=== PATIENT | male | born 1985 | race Caucasian/White ===

== ENCOUNTER 2017-12-06 15:29 | Emergency (ER) | payer OTHER ==
[2017-12-06] MEDS: KETOROLAC 30 MG/ML VIAL (J1885) IV (18:52)
[2017-12-06] MEDS: NS 1,000 ML IV (18:52)
[2017-12-06] MEDS: ONDANSETRON 4MG/2ML VIAL (J2405) IV (18:52)
[2017-12-06 19:07] LABS: BASO % 0.2 % (0.0-1.0); EOS # 0.1 10^3/uL (0.0-0.50); HEMATOCRIT 47.2 % (42.0-52.0); HEMOGLOBIN 15.8 g/dl (14.0-18.0); IMMATURE GRANULOCYTE % 0.3 % (0-3.0); LYMPH # 1.1 10^3/uL (1.5-4.5); LYMPH % 9.1 % (24.0-44.0); MEAN CORPUSCULAR HEMOGLOBIN 28.9 pg (27.0-33.0); MEAN CORPUSCULAR HGB CONC 33.5 g/dl (32.0-36.5); MEAN CORPUSCULAR VOLUME 86.4 fl (80.0-96.0); MONO # 0.8 10^3/uL (0.0-0.8); MONO % 6.9 % (0.0-5.0); NEUTROPHILS # 9.8 10^3/uL (1.8-7.7); NEUTROPHILS % 82.5 % (36.0-66.0); PLATELET COUNT, AUTOMATED 224 10^3/uL (150-450); RED BLOOD COUNT 5.46 10^6/uL (4.30-6.10); RED CELL DISTRIBUTION WIDTH 12.2 % (11.5-14.5); WHITE BLOOD COUNT 11.8 10^3/uL (4.0-10.0)
[2017-12-06 19:29] LABS: ALBUMIN/GLOBULIN RATIO 1.11 (1.00-1.93); ALKALINE PHOSPHATASE 98 U/L (45-117); ALT/SGPT 34 U/L (12-78); ANION GAP 5 MEQ/L (8-16); AST/SGOT 17 U/L (7-37); BILIRUBIN,DIRECT 0.3 MG/DL (0.0-0.2); BILIRUBIN,TOTAL 2.5 MG/DL (0.2-1.0); BLOOD UREA NITROGEN 17 MG/DL (7-18); CALCIUM LEVEL 8.5 MG/DL (8.5-10.1); CARBON DIOXIDE LEVEL 30 MEQ/L (21-32); CHLORIDE LEVEL 104 MEQ/L (98-107); CREATININE FOR GFR 0.86 MG/DL (0.70-1.30); GLOMERULAR FILTRATION RATE > 60.0 (>60); GLUCOSE, FASTING 107 MG/DL (70-100); LIPASE 85 U/L (73-393); POTASSIUM SERUM 3.6 MEQ/L (3.5-5.1); SODIUM LEVEL 139 MEQ/L (136-145); TOTAL PROTEIN 7.6 GM/DL (6.4-8.2)
[2017-12-06 19:34] LABS: BILIRUBIN, URINE MANUAL NEGATIVE (NEGATIVE); GLUCOSE, URINE (UA) MANUAL NEGATIVE (NEGATIVE); KETONE, URINE MANUAL NEGATIVE (NEGATIVE); NITRITE, URINE MANUAL RFX NEGATIVE (NEGATIVE); PROTEIN, URINE MANUAL REFLEX NEGATIVE (NEGATIVE); UROBILINOGEN, URINE MANUAL NORMAL (NORMAL)
[2017-12-06 19:35] LABS: BLOOD URINE MANUAL RFX NEGATIVE (NEGATIVE)
[2017-12-06 19:44] LABS: INFLUENZA A AMPLIFICATION NEGATIVE (NEGATIVE); INFLUENZA B AMPLIFICATION NEGATIVE (NEGATIVE)
[2017-12-06] MEDS: ONDANSETRON 4 MG ORAL DISINTEGRATING TAB (S0181) PO (21:45)
== END 2017-12-06 21:52 | disposition home or self-care (01) ==
LOC: M ED 15:29
DX: A08.11 Acute gastroenteropathy due to Norwalk agent (principal); Z98.890 Other specified postprocedural states
CPT/HCPCS: J2405

== ENCOUNTER 2019-07-25 13:57 | Emergency (ER) | payer OTHER ==
[~2019-07-25] VITALS: Ht 170.2 cm; Wt 103.6 kg
[~2019-07-25 13:57] MED LIST: TYLE160S15 PO; ZOFR4TAB14 PO
[2019-07-25] MEDS ORDERED: ACETAMINOPHEN 500 MG TAB PO ONE (14:45)
[2019-07-25] MEDS ORDERED: IBUPROFEN 800 MG TAB PO ONE (14:45)
[2019-07-25] MEDS ORDERED: PENICILLIN V POTASSIUM 500 MG TAB PO ONE (15:00)
[2019-07-25 15:05] LABS: INFLUENZA A AMPLIFICATION POSITIVE (NEGATIVE); INFLUENZA B AMPLIFICATION NEGATIVE (NEGATIVE)
[2019-07-25] MEDS ORDERED: IBUP-1022 PO ×2 (15:12→15:24)
[2019-07-25] MEDS ORDERED: PENI500T PO (15:12)
[2019-07-25] MEDS ORDERED: OSEL75CA PO (15:24)
[2019-07-25 15:34] VITALS: BP 160/75
== END 2019-07-25 15:44 | disposition home or self-care (01) ==
LOC: M ED 13:57
DX: J02.9 Acute pharyngitis, unspecified (principal)

== ENCOUNTER 2020-04-01 06:55 | Emergency (ER) | payer OTHER ==
[~2020-04-01] VITALS: Ht 170.2 cm; Wt 97.3 kg
[~2020-04-01 06:55] MED LIST changes: +IBUP-1022 PO; +OSEL75CA PO; +PENI500T PO
[2020-04-01 06:57] VITALS: BP 135/83
== END 2020-04-01 08:05 | disposition home or self-care (01) ==
LOC: M ED 06:55
DX: S46.101A Unspecified injury of muscle, fascia and tendon of long head of biceps, right arm, initial encounter (principal); X58.XXXA Exposure to other specified factors, initial encounter; Y92.099 Unspecified place in other non-institutional residence as the place of occurrence of the external cause; Y93.B3 Activity, free weights; Y99.9 Unspecified external cause status

== ENCOUNTER 2020-10-19 21:17 | Emergency (ER) | payer OTHER ==
[~2020-10-19] VITALS: Ht 170.2 cm; Wt 100.1 kg
--- OUTSIDE RECORDS SUMMARY | 2020-10-19 21:23 | CCD | Continuity of Care Document ---
Author Author Tigre DENNIS MD Organization Unknown Address [address], [address] [place] [address] Phone [phone] Care Team Providers Care Paper Machine Backtender Name Role Phone No PCP AUTM Unavailable Problems Description No Information Available Social History Type Date Description Comments Sex Unknown ETOH Use Occasionally consumes alcohol Tobacco Use Start: Unknown Patient has never smoked (pipe, cigarette, cigar) Recreational Drug Use Denies Drug Use Smoking Status Reviewed: 09/12/20 Patient has never sm oked (pipe, cigarette, cigar) Allergies, Adverse Reactions, Alerts Description No Known Drug Allergies Medications Description No Active Medications Immunizations Description No Information Available Vital Signs Date Vital Result Comment 08/15/2020 11:25am Height 67 inches 5'7" Weight 213.00 lb BMI (Body Mass Index) 33.4 kg/m2 BP Systolic 125 mmHg BP Diastolic 82 mmHg Heart Rate 87 /min 09/07/2019 9:32am Height 67 inches 5'7" Weight 220.00 lb BMI (Body Mass Index) 34.5 kg/m2 BP Systolic 119 mmHg BP Diastolic 84 mmHg Heart Rate 79 /min Results Description No Information Available Procedures Description No Information Available Medical Devices Description No Information Available Encounters Type Date Location Provider Dx Diagnosis Office Visit 09/12/2020 10:15a [facility] Manish Dennis MD M51.3 6 Other intervertebral disc degeneration, lumbar region M54.5 Low back pain 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, unsp Office Visit 08/15/2020 11:30a [facility] Manish Dennis MD 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, unsp M54.5 Low back pain M51.36 Other intervertebral disc de generation, lumbar region Assessments Date Code Description Provider 09/12/2020 M51.36 Other intervertebral disc degene ration, lumbar region Manish Dennis MD 09/12/2020 M54.5 Low back pain Manish Dennis MD 09/12/2020 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, unspecified Manish Dennis MD 08/15/2020 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
--- OUTSIDE RECORDS SUMMARY | 2020-10-19 21:24 | CCD ---
Author Author [facility] Organization [facility] Address Unknown Phone Unavailable Care Team Providers Care Sweep Press Operator Name Role Phone Emilia FLYNN MD Unavailable Unavailable Emilia FLYNN MD Unavailable Unavailable Emilia FLYNN MD Unavailable Unavailable Emilia FLYNN MD Unavailable Unavailable Emilia FLYNN MD Unavailable Unavailable Emilia FLYNN MD Unavailable Unavailable Emilia FLYNN MD Unavailable Unavailable Emilia FLYNN MD Unavailable Unavailable Emilia FLYNN MD Unavailable Unavailable Emilia FLYNN MD Unavailable Unavailable Emilia FLYNN MD Unavailable Unavailable Emilia FLYNN MD Unavailable Unavailable Emilia FLYNN MD Unavailable Unavailable Emilia FLYNN MD Unavailable Unavailable Emilia FLYNN MD Unavailable Unavailable Emilia FLYNN MD Unavailable Unavailable Emilia FLYNN MD Unavailable Unavailable Emilia FLYNN MD Unavailable Unavailable Emilia FLYNN MD Unavailable Unavailable Emilia FLYNN MD Unavailable Unavailable Emilia FLYNN MD Unavailable Unavailable Emilia FLYNN MD Unavailable Unavailable Emilia FLYNN MD Unavailable Unavailable Emilia FLYNN MD Unavailable Unavailable Emilia FLYNN MD Unavailable Unavailable Emilia FLYNN MD Unavailable Unavailable Emilia FLYNN MD Unavailable Unavailable Emilia FLYNN MD Unavailable Unavailable Emilia FLYNN MD Unavailable Unavailable Emilia FLYNN MD Unavailable Unavailable Emilia FLYNN MD Unavailable Unavailable Emilia FLYNN MD Unavailable Unavailable Emilia FLYNN MD Unavailable Unavailable Emilia FLYNN MD Unavailable Unavailable Emilia FLYNN MD Unavailable Unavailable Emilia FLYNN MD Unavailable Unavailable Emilia FLYNN MD Unavailable Unavailable Emilia FLYNN MD Unavailable Unavailable Emilia FLYNN MD Unavailable Unavailable Emilia FLYNN MD Unavailable Unavailable MOQUIN, R ROSS Unavailable Unavailable MOQUIN, R ROSS Unavailable Unavailable MOQUIN, R TYE LARIOS Unavailable Unavailable MOQUIN, R TYE LARIOS Unavailable Unavailable MOQUIN, R TYE LARIOS Unavailable Unavailable MOQUIN, R ROSS Unavailable Unavailable MOQUIN, R ROSS Unavailable Unavailable MOQUIN, R ROSS Unavailable Unavailable MOQUIN, R TYE LARIOS Unavailable Unavailable MOQUIN, R TYE LARIOS Unavailable Unavailable MOQUIN, R TYE LARIOS Unavailable Unavailable MOQUIN, R TYE LARIOS Unavailable Unavailable MOQUIN, R TYE LARIOS Unavailable Unavailable MOQUIN, R ROSS MD Unavailable Unavailable MOQUIN, R ROSS MD Unavailable Unavailable MOQUIN, R ROSS MD Unavailable Unavailable MOQUIN, R ROSS Unavailable Unavailable MOQUIN, R TYE LARIOS Unavailable Unavailable MOQUIN, R TYE LARIOS Unavailable Unavailable MOQUIN, R TYE LARIOS Unavailable Unavailable MOQUIN, R TYE LARIOS Unavailable Unavailable MOQUIN, R TYE LARIOS Unavailable Unavailable MOQUIN, R TYE LARIOS Unavailable Unavailable MOQUIN, R TYE LARIOS Unavailable Unavailable MOQUIN, R TYE LARIOS Unavailable Unavailable MOQUIN, R TYE LARIOS Unavailable Unavailable MOQUIN, R TYE LARIOS Unavailable Unavailable MOQUIN, R TYE LARIOS Unavailable Unavailable MOQUIN, R TYE LARIOS Unavailable Unavailable MOQUIN, R TYE LARIOS Unavailable Unavailable MOQUIN, R TYE LARIOS Unavailable Unavailable MOQUIN, R TYE LARIOS Unavailable Unavailable MOQUIN, R TYE LARIOS Unavailable Unavailable MOQUIN, R TYE LARIOS Unavailable Unavailable MOQUIN, R TYE LARIOS Unavailable Unavailable MOQUIN, R TYE LARIOS Unavailable Unavailable MOQUIN, R TYE LARIOS Unavailable Unavailable MOQUIN, R TYE LARIOS Unavailable Unavailable MOQUIN, R TYE LARIOS Unavailable Unavailable MOQUIN, R TYE LARIOS Unavailable Unavailable MOQUIN, R TYE LARIOS Unavailable Unavailable MOQUIN, R TYE LARIOS Unavailable Unavailable MOQUIN, R TYE LARIOS Unavailable Unavailable MOQUIN, R TYE LARIOS Unavailable Unavailable MOQUIN, R TYE LARIOS Unavailable Unavailable MOQUIN, R TYE LARIOS Unavailable Unavailable [facility] Unavailable Unavailable MOQUIN, R TYE LARIOS Unavailable Unavailable MOQUIN, R TYE LARIOS Unavailable Unavailable MOQUIN, R TYE LARIOS Unavailable Unavailable MOQUIN, R TYE LARIOS Unavailable Unavailable MOQUIN, R TYE LARIOS Unavailable Unavailable MOQUIN, R TYE LARIOS Unavailable Unavailable MOQUIN, R TYE LARIOS Unavailable Unavailable MOQUIN, R TYE LARIOS Unavailable Unavailable MOQUIN, R TYE LARIOS Unavailable Unavailable MOQUIN, R TYE LARIOS Unavailable Unavailable MOQUIN, R TYE LARIOS Unavailable Unavailable MOQUIN, R TYE LARIOS Unavailable Unavailable MOQUIN, R TYE LARIOS Unavailable Unavailable MOQUIN, R TYE LARIOS Unavailable Unavailable MOQUIN, R TYE LARIOS Unavailable Unavailable MOQUIN, R ROSS MD Unavailable Unavailable MOQUIN, R ROSS MD Unavailable Unavailable MOQUIN, R ROSS MD Unavailable Unavailable MOQUIN, R ROSS MD Unavailable Unavailable MOQUIN, R ROSS MD Unavailable Unavailable MOQUIN, R ROSS MD Unavailable Unavailable MOQUIN, R ROSS MD Unavailable Unavailable MOQUIN, R ROSS MD Unavailable Unavailable MOQUIN, R ROSS MD Unavailable Unavailable MOQUIN, R ROSS MD Unavailable Unavailable MOQUIN, R ROSS MD Unavailable Unavailable MOQUIN, R ROSS MD Unavailable Unavailable MOQUIN, R ROSS MD Unavailable Unavailable MOQUIN, R ROSS MD Unavailable Unavailable MOQUIN, R ROSS MD Unavailable Unavailable MOQUIN, R ROSS MD Unavailable Unavailable MOQUIN, R ROSS MD Unavailable Unavailable MOQUIN, R ROSS MD Unavailable Unavailable MOQUIN, R ROSS MD Unavailable Unavailable MOQUIN, R ROSS MD Unavailable Unavailable MOQUIN, R ROSS MD Unavailable Unavailable MOQUIN, R ROSS MD Unavailable Unavailable MOQUIN, R ROSS MD Unavailable Unavailable MOQUIN, R ROSS MD Unavailable Unavailable MOQUIN, R ROSS MD Unavailable Unavailable MOQUIN, R ROSS MD Unavailable Unavailable MOQUIN, R ROSS Unavailable Unavailable MOQUIN, R ROSS Unavailable Unavailable MOQUIN, R ROSS MD Unavailable Unavailable MOQUIN, R ROSS MD Unavailable Unavailable MOQUIN, R ROSS MD Unavailable Unavailable MOQUIN, R ROSS MD Unavailable Unavailable MOQUIN, R ROSS Unavailable Unavailable MOQUIN, R ROSS Unavailable Unavailable MOQUIN, R ROSS Unavailable Unavailable MOQUIN, R ROSS Unavailable Unavailable MOQUIN, R ROSS Unavailable Unavailable MOQUIN, R ROSS Unavailable Unavailable MOQUIN, R ROSS MD Unavailable Unavailable MOQUIN, R ROSS Unavailable Unavailable MOQUIN, R ROSS Unavailable Unavailable MOQUIN, R ROSS Unavailable Unavailable MOQUIN, R ROSS Unavailable Unavailable MOQUIN, R ROSS Unavailable Unavailable MOQUIN, R ROSS MD Unavailable Unavailable MOQUIN, R ROSS MD Unavailable Unavailable MOQUIN, R ROSS MD Unavailable Unavailable MOQUIN, R ROSS MD Unavailable Unavailable MOQUIN, R ROSS MD Unavailable Unavailable MOQUIN, R ROSS MD Unavailable Unavailable MOQUIN, R ROSS Unavailable Unavailable MOQUIN, R ROSS Unavailable Unavailable MOQUIN, R ROSS MD Unavailable Unavailable MOQUIN, R ROSS MD Unavailable Unavailable MOQUIN, R ROSS MD Unavailable Unavailable MOQUIN, R ROSS MD Unavailable Unavailable MOQUIN, R ROSS MD Unavailable Unavailable MOQUIN, R ROSS MD Unavailable Unavailable MOQUIN, R ROSS MD Unavailable Unavailable MOQUIN, R ROSS Unavailable Unavailable MOQUIN, R ROSS Unavailable Unavailable MOQUIN, R ROSS MD Unavailable Unavailable MOQUIN, R ROSS MD Unavailable Unavailable MOQUIN, R TYE LARIOS Unavailable Unavailable MOQUIN, R TYE LARIOS Unavailable Unavailable MOQUIN, R TYE LARIOS Unavailable Unavailable MOQUIN, R TYE LARIOS Unavailable Unavailable MOQUIN, R TYE LARIOS Unavailable Unavailable MOQUIN, R TYE LARIOS Unavailable Unavailable MOQUIN, R TYE LARIOS Unavailable Unavailable MOQUIN, R TYE LARIOS Unavailable Unavailable LORRIE, 0000{ Unavailable Unavailable Re-disclosure Warning The records that you are about to access may contain information from federally-assisted alcohol or drug abuse programs. If such information is present, then the following federally mandated warning applies: This information has been disclosed to you from records protected by federal confidentiality rules (42 CFR part 2). The federal rules prohibit you from making any further disclosure of this information unless further disclosure is expressly permitted by the written consent of the person to whom it pertains or as otherwise permitted by 42 CFR part 2. A general authorization for the release of medical or other information is NOT sufficient for this purpose. The Federal rules restrict any use of the information to criminally investigate or prosecute any alcohol or drug abuse patient.The records that you are about to access may contain highly sensitive health information, the redisclosure of which is protected by Article 27-F of the [facility] Public Health law. If you continue you may have access to information: Regarding HIV / AIDS; Provided by facilities licensed or operated by the [facility] Office of Mental Health; or Provided by the [facility] Office for People With Developmental Disabilities. If such information is present, then the following [facility] mandated warning applies: This information has been disclosed to you from confidential records which are protected by state law. State law prohibits you from making any further disclosure of this information without the specific written consent of the person to whom it pertains, or as otherwise permitted by law. Any unauthorized further disclosure in violation of state law may result in a fine or usp sentence or both. A general authorization for the release of medical or other information is NOT sufficient authorization for further disc losure. 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 ENTER 08/27/2019 12:00:00 AM EST eCW1 ([facility]) Medications Medication Brand Name Start Date Product Form Dose Route Admi nistrative Instructions Pharmacy Instructions Status Indications Reaction Description Data Source(s) Ciprofloxacin 750 MG Oral Tablet Ciprofloxacin HCl 750 MG Ciprofloxacin HCl 750 MG 08/27/2019 12:00:00 AM EST active 1 tablet eCW1 ([facility]) Insurance Providers Payer name Policy type / Coverage type Policy ID Covered republican ID Covered republican's relationship to donald Policy Donald Plan Information [facility] [employer] [id number] SP [id number] [facility] [id number] S [id number] [id number] S [id number] [facility] [employer] - O/P [id number] Problems, Conditions, and Diagnoses Code Display Name Description Problem Type Effective Dates Data Source(s) F17.220 Nicotine dependence, chewing tobacco, un complicated NICOTINE DEPENDENCE, CHEWING TOBACCO, UNCOMPLICATE Diagnosis 08/27/2019 02:55:00 PM EST [facility] J32.0 Chronic maxillary sinusitis CHRONIC MAXILLARY SINUSITI S Diagnosis 08/27/2019 02:55:[address] [facility] Results ID Date Data Source [id number] 09/12/2020 08:25:00 AM EST [facility] DATE OF EXAM: 09/11/2020MRI THORACIC SPI NE WITH AND WITHOUT CONTRAST CLINICAL STATEMENT: Benign neoplasm of the peripheral nerves and nervous system TECHNIQUE: Multiplanar, multisequential imaging of the thoracic spine was performed with and without the administration of intravenous contrast. The patient was administered 18 mL ProHance intravenously/20 mL vial. COMPARISON: MRI lumbar spine 08/15/2020 FINDINGS: Vertebral body height, alignment, and marrow signal is preserved. Multilevel disc desiccation is seen with few very small endplate Schmorl's nodes and slight loss of intervertebral disc height. The thoracic spinal cord is normal in signal and caliber. No suspicious intraspinal enhancement or suspicious intraspinal mass is seen on this examination. No epidural fluid collection is seen. At T6-T7, a small right paracentral disc protrusion is seen with no significant foraminal narrowing. Very minimal central spinal canal stenosis is seen.At T7-T8, a small central disc protrusion is seen with ventral indentation on the thoracic spinal cord. No significant foraminal narrowing is seen. Minimal central spinal canal stenosis is seen.At T8-T9, a very small right paracentral disc protrusion is seen with very minimal central spinal canal stenosis. No significant foraminal narrowing.At T11-T12, a very mild broad-based disc protrusion is seen with no significant central spinal canal stenosis or foraminal narrowing. IMPRESSION: No suspicious intraspinal enhancement or intraspinal mass is seen on this exam. Mild multilevel degenerative disc disease in the thoracic spine with disc desicc ation, several small disc protrusions and endplate Schmorl's nodes. Minimal central spinal canal stenosis at T7-T8. Very minimal central spinal canal stenosis at T6-T7 and T8-T9. Professional interpretation performed at [facility] .End of diagnostic report for accession: [id number] Interpreted: Tal Justice MDTranscribed: 09/12/2020 08:18 AMSigned: 09/12/2020 08:25 AM Tal Justice MD [facility] # [id number] BILL # [id number] 2MEM Name Value Range Interpretation Code Description Data Nancy rce(s) Supporting Document(s) ID Date Data Source [id number] 08/15/2020 11:26:00 AM [facility] DATE OF EXAM: 08/15/2020[facility] MRI LUMBAR SPINE WITHOUT CONTRAST INDICATION: Benign neoplasm of peripheral nerves. Thoracic mass. COMPARISON: None available. TECHNIQUE: MRI of the lumbar spine was performed without intravenous contrast, utilizing multiplanar sequences. FINDINGS: There is normal lumbar lordosis. Normal vertebral body heights, alignment, and marrow signal are maintained. At L4-L5, a small midline central disc protrusion is identified with associated posterior annular fissure and/or tear, which results in mild central spinal canal stenosis, without significant neural foraminal narrowing. At L5-S1, a broad-based concentric disc bulge is identified, not causing significant central spinal canal stenosis or neural foraminal narrowing. Otherwise, the remainder of the lumbar levels appear unremarkable, without significant disc herniation, spinal canal stenosis or neural foraminal narrowing. No paravertebral or epidural mass is seen. The conus appears unremarkable. IMPRESSION: Small midline central disc protrusion at L4-L5 with associated posterior annular fissure and/or tear, resulting in mild central spinal canal stenosis. Broad-based concentric disc bulge at L5-S1, not causing significant central spinal canal stenosis. Professional interpretation performed at [facility] .End of diagnostic report for accession: [id number] Interpreted: Bennie Lemus MDTranscribed: 08/15/2020 11:04 AMSigned: 08/15/2020 11:26 AM Bennie Lemus MD [facility] # [id number] BILL # [id number] 2MEM Name Value Range Interpretation Code Description Data Nancy rce(s) Supporting Document(s) Procedure Social History Code Duration Value Status Description Data Source(s ) Smoking 09/12/2020 12:00:00 AM EST Patient has n ever smoked (pipe, cigarette, cigar) completed Patient has never smoked (pipe, cigarett e, cigar) [facility] ([facility]) Vital Signs ID Date Data Source UNK Name Value Range Interpretation Code Description Data Source(s) Heart rate 87 /min 87 /min [facility] ([facility]) Diastolic blood pressure 82 mm[Hg] 82 mm[Hg] [facility] ([facility]) Systolic blood pressure 125 mm[Hg] 125 mm[Hg] M [facility] ([facility]) Body mass index (BMI) [Ratio] 33.4 kg/m2 33.4 k g/m2 [facility] ([facility]) Body weight 213.00 [lb_av] 213.00 [lb_av] MEDEN T ([facility]) Body height 67 [in_i] 67 [in_i] [facility] ([facility]) 5'7" Heart rate 79 /min 79 /min [facility] ([facility]) Diastolic blood pressure 84 mm[Hg] 84 mm[Hg] [facility] ([facility]) Systolic blood pressure 119 mm[Hg] 119 mm[facility]Hg[facility] Body mass index (BMI) [Ratio] 34.5 kg/m2 34.5 k g/m2 [facility] ([facility]) Body weight 220.00 [lb_av] 220.00 [lb_av] MEDEN T ([facility]) Body height 67 [in_i] 67 [in_i] [facility] ([facility]) 5'7" Heart rate 79 /min 79 /min [facility] ([facility]) Diastolic blood pressure 84 mm[Hg] 84 mm[Hg] [facility] ([facility]) Systolic blood pressure 119 mm[Hg] 119 mm[Hg] [facility] Body mass index (BMI) [Ratio] 34.5 kg/m2 34.5 k g/m2 [facility] ([facility]) Body weight 220.00 [lb_av] 220.00 [lb_av] MEDEN T ([facility]) Deprecated Oxygen saturation in Capillary blood by Oximetry 98 % 98 % eCW1 ([facility]) Respiratory rate 16 /min 16 /min eCW1 ([facility]) Heart rate 87 /min 87 /min eCW1 ([facility]) Body temperature 97.8 [degF] 97.8 [degF] eCW1 ( [facility]) Body mass index (BMI) [Ratio] 36.43 kg/m2 36.43 kg/m2 eCW1 ([facility]) Body weight Measured 232.6 [lb_av] 232.6 [lb_av ] eCW1 ([facility]) Body height 67 [in_us] 67 [in_us] eCW1 ([facility]) Patient Treatment Plan of Care Planned Activity Planned Date Details Description Data Source (s) Ciprofloxacin 750 MG Oral Tablet 08/27/2019 12:00:00 AM EST eCW1 ([facility])
--- OUTSIDE RECORDS SUMMARY | 2020-10-19 21:24 | CCD | Continuity of Care Document ---
Author Author Tigre DENNIS MD Organization Unknown Address [address], [address] [place] [address] Phone [phone] Care Team Providers Care Shoe Polisher Name Role Phone No PCP [facility] Unavailable Problems Description No Information Available Social History Type Date Description Comments Sex Unknown ETOH Use Occasionally consumes alcohol Tobacco Use Start: Unknown Patient has never smoked (pipe, cigarette, cigar) Recreational Drug Use Denies Drug Use Smoking Status Reviewed: 08/15/20 Patient has never sm oked (pipe, cigarette, [...] Date Location Provider Dx Diagnosis Office Visit 08/15/2020 11:30a [facility] Manish Dennis MD 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, unsp M54.5 Low back pain M51.36 Other intervertebral disc de generation, lumbar region Assessments Date Code Description Provider 08/15/2020 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, unspecified Manish Dennis MD 08/15/2020 M54.5 Low back pain Manish Dennis MD 08/15/2020 M51.36 Other intervertebral disc degene ration, lumbar region Manish Dennis MD Plan of Treatment 08/15/2020 - Manish Dennis MD* 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
--- OUTSIDE RECORDS SUMMARY | 2020-10-19 21:24 | CCD | Continuity of Care Document ---
Author Author Tigre DENNIS MD Organization Unknown Address [address], [address] [place] [address] Phone [phone] Care Team Providers Care Lap Checker Name Role Phone No PCP [facility] Unavailable [...] Status Appt Date Manish Dennis MD Created [facility] [address], [address] [place] [address] [phone]
[2020-10-19 22:04] LABS: BASO # 0.1 10^3/uL (0.0-0.2); BASO % 0.5 % (0.0-1.0); EOS # 0.2 10^3/uL (0.0-0.5); HEMATOCRIT 47.9 % (42.0-52.0); HEMOGLOBIN 15.6 g/dl (13.5-17.5); LYMPH # 3.4 10^3/uL (1.5-5.0); LYMPH % 30.3 % (24.0-44.0); MEAN CORPUSCULAR HGB CONC 32.6 g/dl (32.0-36.5); MONO # 0.9 10^3/uL (0.0-0.8); MONO % 8.2 % (0.0-5.0); NEUTROPHILS # 6.6 10^3/uL (1.5-8.5); NEUTROPHILS % 58.6 % (36.0-66.0); PLATELET COUNT, AUTOMATED 242 10^3/uL (150-450); RED BLOOD COUNT 5.57 10^6/uL (4.30-6.10); WHITE BLOOD COUNT 11.2 10^3/uL (4.0-10.0)
[2020-10-19 22:30] LABS: ALBUMIN 4.2 GM/DL (3.2-5.2); ALT/SGPT 41 U/L (12-78); BILIRUBIN,DIRECT 0.2 MG/DL (0.0-0.2); BILIRUBIN,TOTAL 1.3 MG/DL (0.2-1.0); BLOOD UREA NITROGEN 19 MG/DL (7-18); CALCIUM LEVEL 9.3 MG/DL (8.5-10.1); CARBON DIOXIDE LEVEL 31 MEQ/L (21-32); CHLORIDE LEVEL 103 MEQ/L (98-107); CREATININE FOR GFR 1.24 MG/DL (0.70-1.30); GLOMERULAR FILTRATION RATE > 60.0 (>60); GLUCOSE, FASTING 117 MG/DL (70-100); LIPASE 170 U/L (73-393); SODIUM LEVEL 139 MEQ/L (136-145); TOTAL PROTEIN 7.6 GM/DL (6.4-8.2)
--- OUTSIDE RECORDS SUMMARY | 2020-10-19 22:33 | CCD ---
Author Author [facility] Organization [facility] Address Unknown Phone Unavailable Care Team Providers Care Retirement Consultant Name Role Phone Emilia FLYNN MD Unavailable [...] MOQUIN, R TYE LARIOS Unavailable Unavailable [facility] Unavailable Unavailable MOQUIN, R TYE LARIOS Unavailable [...] is protected by Article 27-F of the [place] Public Health law. If you continue you may have access to information: Regarding HIV / AIDS; Provided by facilities licensed or operated by the [facility] Office of Mental Health; or Provided by the [facility] Office for People With Developmental Disabilities. If such information is present, then the following [facility] mandated warning applies: This information has been [...] law may result in a fine or alf sentence or both. A general authorization for the release of medical or other information is NOT sufficient authorization for further disc losure. 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 Outpatient Attender: TYE FLYNN MD [facility] Internal Med at [facility] acuse 08/15/2020 10:30:00 AM EST [facility] ([facility]) Outpatient Attender: 0000{ LORRIE 08/15/2020 10:10:00 AM [facility] Outpatient Attender: TYE FLYNN MD 08/15/2020 10:10 :00 AM EST BENIGN NEOPLASM OF PRPH NERVES AND AUTONM NERVOUS SYS, [facility] BENIGN NEOPLASM OF PRPH NERVES AND AUTON M NERVOUS SYS, [facility] Outpatient Attender: LEVY YAÑEZ 08/27/2019 02:55:00 PM EST [facility] ENTER 08/27/2019 12:00:00 AM EST eCW1 ([facility]) Medications Medication Brand Name Start Date Product Form Dose Route Admi nistrative Instructions Pharmacy Instructions Status Indications Reaction Description Data Source(s) Ciprofloxacin 750 MG Oral Tablet Ciprofloxacin HCl 750 MG Ciprofloxacin HCl 750 MG 08/27/2019 12:00:00 AM EST active 1 tablet eCW1 ([facility]) Insurance Providers Payer name Policy type / Coverage type Policy ID Covered republican ID Covered republican's relationship to donald Policy Donald Plan Information [facility] ACTIVE DUTY [id number] [id number] [id number] [id number] [facility] [id number] S [id number] [facility] HUMANA - O/P [id number] 18 [id number] Problems, Conditions, and Diagnoses Code Display Name Description Problem Type Effective Dates Data Source(s) F17.220 Nicotine dependence, chewing tobacco, un complicated NICOTINE DEPENDENCE, CHEWING TOBACCO, UNCOMPLICATE Diagnosis 08/27/2019 02:55:00 PM EST [facility] J32.0 Chronic maxillary sinusitis CHRONIC MAXILLARY SINUSITI S Diagnosis 08/27/2019 02:55:00 PM EST [facility] Results ID Date Data Source [id number] 09/12/2020 08:25:00 AM EST [facility] DATE OF EXAM: 09/11/2020MRI THORACIC [...] T6-T7 and T8-T9. Professional interpretation performed at [facility] .End of diagnostic report for accession: [id number] Interpreted: Tal Justice MDTranscribed: 09/12/2020 08:18 AMSigned: 09/12/2020 08:25 AM Tal Justice MD [facility] # [id number] BILL # [id number] 2MEM Name Value Range Interpretation Code Description Data Nancy rce(s) Supporting Document(s) ID Date Data Source [id number] 08/15/2020 11:26:00 AM RAD[facility] DATE OF EXAM: 08/15/2020[facility] MRI LUMBAR SPINE WITHOUT CONTRAST INDICATION: Benign [...] spinal canal stenosis. Professional interpretation performed at [facility] .End of diagnostic report for accession: [id number] Interpreted: Bennie Lemus MDTranscribed: 08/15/2020 11:04 AMSigned: 08/15/2020 11:26 AM Bennie Lmeus MD [facility] # [id number] BILL # [id number] 2MEM Name Value Range Interpretation Code Description Data Nancy rce(s) Supporting Document(s) Procedure Social History Code Duration Value Status Description Data Source(s ) Smoking 09/12/2020 12:00:00 AM EST Patient has n ever smoked (pipe, cigarette, cigar) completed Patient has never smoked (pipe, cigarett e, cigar) [facility] ([facility]) Vital Signs ID Date Data Source UNK Name Value Range Interpretation Code Description Data Source(s) Heart rate 87 /min 87 /min [facility] ([facility]) Diastolic blood pressure 82 mm[Hg] 82 mm[Hg] [facility] ([facility]) Systolic blood pressure 125 mm[Hg] 125 mm[Hg] M [facility] ([facility]) Body mass index (BMI) [Ratio] 33.4 kg/m2 33.4 k g/m2 [facility] ([facility]) Body weight 213.00 [lb_av] 213.00 [lb_av] MEDEN T ([facility]) Body height 67 [in_i] 67 [in_i] [facility] ([facility]) 5'7" Heart rate 79 /min 79 /min [facility] ([facility]) Diastolic blood pressure 84 mm[Hg] 84 mm[Hg] [facility] ([facility]) Systolic blood pressure 119 mm[Hg] 119 mm[Hg] [facility] Body mass index (BMI) [Ratio] 34.5 kg/m2 34.5 k g/m2 [facility] ([facility]) Body weight 220.00 [lb_av] 220.00 [lb_av] MEDEN T ([facility]) Body height 67 [in_i] 67 [in_i] [facility] ([facility]) 5'7" Heart rate 79 /min 79 /min [facility] ([facility]) Diastolic blood pressure 84 mm[Hg] 84 mm[Hg] [facility] ([facility]) Systolic blood pressure 119 mm[Hg] 119 mm[Hg] [facility] Body mass index (BMI) [Ratio] 34.5 kg/m2 34.5 k g/m2 [facility] ([facility]) Body weight 220.00 [lb_av] 220.00 [lb_av] MEDEN T ([facility]) Deprecated Oxygen saturation in Capillary blood by Oximetry 98 % 98 % eCW1 ([facility]) Respiratory rate 16 /min 16 /min eCW1 ([facility]) Heart rate 87 /min 87 /min eCW1 ([facility]) Body temperature 97.8 [degF] 97.8 [degF] eCW1 ( [facility]) Body mass index (BMI) [Ratio] 36.43 kg/m2 36.43 kg/m2 eCW1 ([facility]) Body weight Measured 232.6 [lb_av] 232.6 [lb_av ] eCW1 ([facility]) Body height 67 [in_us] 67 [in_us] eCW1 ([facility]) Patient Treatment Plan of Care Planned Activity Planned Date Details Description Data Source (s) Ciprofloxacin 750 MG Oral Tablet 08/27/2019 12:00:00 AM EST eCW1 ([facility])
[2020-10-19] MEDS ORDERED: ISOVUE-370 76% 100ML VIAL As Ordered ONE (22:42)
[2020-10-19] MEDS ORDERED: GI COCKTAIL 50ML BTL(HYOSCYAMINE/MAALOX/LIDOCAINE VISCOUS)(1:3:1) PO ONE (22:45)
--- NOTE | 2020-10-19 23:18 | REPVR ---
PROCEDURE INFORMATION: Exam: CT Abdomen And Pelvis With Contrast Exam date and time: 10/19/2020 10:48 PM Age: 35 years old Clinical indication: Abdominal pain; Epigastric; Additional info: Epigastric pain, excessive eructation TECHNIQUE: Imaging protocol: Computed tomography of the abdomen and pelvis with intravenous contrast. Radiation optimization: All CT scans at this facility use at least one of these dose optimization techniques: automated exposure control; mA and/or kV adjustment per patient size (includes targeted exams where dose is matched to clinical indication); or iterative reconstruction. Contrast material: ISOVUE 370; Contrast volume: 100 ml; Contrast route: INTRAVENOUS (IV); COMPARISON: No relevant prior studies available. FINDINGS: Liver: Normal. No mass. Gallbladder and bile ducts: Status post cholecystectomy. No biliary ductal dilatation. Pancreas: Normal. No ductal dilation. Spleen: Normal. No splenomegaly. Adrenal glands: Normal. No mass. Kidneys and ureters: Normal. No hydronephrosis. Stomach and bowel: Mild colonic diverticulosis. No evidence of diverticulitis. Copious ingested material within the stomach. No abnormal bowel dilatation. No abnormal bowel wall thickening. Appendix: Appendix is normal. Intraperitoneal space: Mild haziness of the mesentery. No free fluid. No free fluid. Vasculature: Unremarkable. No abdominal aortic aneurysm. Lymph nodes: No enlarged lymph nodes. Multiple small mesenteric nodes. Urinary bladder: Diffuse thickening of the bladder. Reproductive: Prostate is normal in size. Bones/joints: Unremarkable. No acute fracture. Soft tissues: Small umbilical hernia containing fat. There is no evidence of strangulation. IMPRESSION: 1. Diffuse thickening of the bladder. Hypertrophic changes versus cystitis. 2. Mild haziness of the mesentery. Unknown etiology. 3. Colonic diverticulosis without diverticulitis. Electronically signed by: Dominic Harvey On 10/19/2020 23:18:39 PM
[2020-10-20 00:34] VITALS: BP 119/64
--- NOTE | 2020-10-20 08:56 | ECGEPIP ---
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
== END 2020-10-20 00:36 | disposition home or self-care (01) ==
LOC: M ED 21:17
DX: R10.13 Epigastric pain (principal); R14.2 Eructation; R00.0 Tachycardia, unspecified
CPT/HCPCS: 74177; 80048; 80076; 81001; 83690; 85025; 93005; 99284; Q9967

== ENCOUNTER 2024-01-31 03:25 | Emergency (ER) | payer OTHER ==
[~2024-01-31] VITALS: Ht 170.2 cm; Wt 106.6 kg
[2024-01-31] MEDS ORDERED: IBUP200C28 PO (03:32)
[2024-01-31] MEDS ORDERED: ACET-683 PO (03:32)
[2024-01-31] MEDS ORDERED: TIZA4CAP PO (03:32)
[2024-01-31] MEDS: KETOROLAC 30 MG/ML 1ML VIAL IV ONE (07:03)
[2024-01-31 07:18] LABS: BASO % 0.3 % (0.0-1.0); EOS # 0.1 10^3/uL (0.0-0.5); EOS % 1.2 % (0.0-3.0); HEMATOCRIT 42.3 % (42.0-52.0); HEMOGLOBIN 14.2 g/dl (13.5-17.5); LYMPH # 1.9 10^3/uL (1.5-5.0); LYMPH % 16.4 % (24.0-44.0); MEAN CORPUSCULAR HEMOGLOBIN 28.9 pg (27.0-33.0); MEAN CORPUSCULAR HGB CONC 33.6 g/dl (32.0-36.5); MONO % 8.2 % (2.0-8.0); NEUTROPHILS # 8.6 10^3/uL (1.5-8.5); NEUTROPHILS % 73.5 % (36.0-66.0); PLATELET COUNT, AUTOMATED 224 10^3/uL (150-450); RED BLOOD COUNT 4.92 10^6/uL (4.30-6.10); WHITE BLOOD COUNT 11.8 10^3/uL (4.0-10.0)
[2024-01-31 07:24] LABS: ERYTHROCYTE SEDIMENTATION RATE 9 mm/hr (0-15)
[2024-01-31] MEDS ORDERED: ISOVUE-370 76% 100ML VIAL As Ordered ONE (07:36)
[2024-01-31] MEDS: methylPREDNISolone 125MG 2ML VIAL IV ONE (09:05)
[2024-01-31] MEDS: ACETAMINOPHEN *IV* 1,000 MG in IV 1 EA IV ONE (09:27)
[2024-01-31] MEDS ORDERED: HOME MED LIST COMPLETE! XX SCH (09:30)
[2024-01-31 12:00] VITALS: BP 122/71; TEMP 96.3; O2SAT 97
[2024-01-31] MEDS ORDERED: NAPR-837 PO (12:06)
[2024-01-31] MEDS ORDERED: CYCL-707 PO (12:06)
== END 2024-01-31 12:20 | disposition home or self-care (01) ==
LOC: M ED 03:25
DX: M26.629 Arthralgia of temporomandibular joint, unspecified side (principal); L04.0 Acute lymphadenitis of face, head and neck; F17.210 Nicotine dependence, cigarettes, uncomplicated; Z79.1 Long term (current) use of non-steroidal anti-inflammatories (NSAID); Z79.899 Other long term (current) drug therapy
CPT/HCPCS: 70491; 80047; 85025; 85652; 86140; 96365; 96374; 96375; 99284; J0131; J1885; J2919; Q9967

== ENCOUNTER → 2024-03-23 | Outpatient (CLI) | payer OTHER ==
[~2024-03-23] MED LIST changes: +ACET-683 PO; +CYCL-707 PO; +IBUP200C28 PO; +NAPR-837 PO; +TIZA4CAP PO
== END ==
LOC: M PLAIMG 13:27
PROVIDERS: ATTEND Nurse Practitioner Family
DX: M26.602 Left temporomandibular joint disorder, unspecified (principal)

== ENCOUNTER → 2024-12-30 | Outpatient (REF) | payer OTHER ==
[2024-12-30 15:55] LABS: SEMEN APPEARANCE OPAQUE (OPAQUE); SEMEN VISCOSITY LIQUID (LIQUID); SEMEN VOLUME 2.4 ml (2.0-5.0); WBC CONCENTRATION >1 M/ml (<=1 M/ml)
== END ==
LOC: M LAB REF 15:20
PROVIDERS: ATTEND Surgery
DX: Z30.2 Encounter for sterilization (principal)

== ENCOUNTER 2025-05-04 14:19 | Emergency (ER) | payer OTHER ==
[~2025-05-04] VITALS: Ht 170.2 cm; Wt 100.1 kg
[2025-05-04 16:39] LABS: KETONE, URINE AUTO RFX NEGATIVE (NEGATIVE); LEUKOCYTE ESTERASE UR AUTO RFX NEGATIVE (NEGATIVE); MUCUS, URINE RFX SMALL (NEGATIVE); NITRITE, URINE AUTO RFX NEGATIVE (NEGATIVE); RBC, URINE AUTO RFX 0 /HPF (0-3); SQUAM EPITHELIAL CELL UR AURFX 0 /HPF (0-6); WBC, URINE AUTO RFX 1 /HPF (0-3)
[2025-05-04 17:38] LABS: Trichomonas vaginalis (AMP) NOT DETECTED (NEGATIVE)
[2025-05-04] MEDS: KETOROLAC 30 MG/ML 1 ML VIAL IV ONE (17:45)
[2025-05-04 17:49] LABS: BASO # 0.1 10^3/uL (0.0-0.2); BASO % 0.6 % (0.0-1.0); EOS # 0.1 10^3/uL (0.0-0.5); EOS % 1.1 % (0.0-3.0); LYMPH # 2.6 10^3/uL (1.5-5.0); LYMPH % 24.2 % (24.0-44.0); MONO # 0.9 10^3/uL (0.0-0.8); MONO % 8.4 % (2.0-8.0); NEUTROPHILS # 7.1 10^3/uL (1.5-8.5); NEUTROPHILS % 65.5 % (36.0-66.0); PLATELET COUNT, AUTOMATED 262 10^3/uL (150-450)
[2025-05-04] MEDS ORDERED: ISOVUE-370 76% 100 ML VIAL As Ordered ONE (18:00)
[2025-05-04 18:02] LABS: GC DNA AMPLIFICATION NEGATIVE (NEGATIVE)
[2025-05-04 18:16] LABS: ALT/SGPT 30 U/L (7.0-40); AST/SGOT 17 U/L (<34); CALCIUM LEVEL 9.5 MG/DL (8.5-10.1); CARBON DIOXIDE LEVEL 29 MMOL/L (20-31); CHLORIDE LEVEL 102 MMOL/L (98-107); CREATININE FOR GFR 1.00 MG/DL (0.70-1.30); GLOMERULAR FILTRATION RATE > 90.0 (>60); POTASSIUM SERUM 4.1 MMOL/L (3.5-5.1); SODIUM LEVEL 140 MMOL/L (136-145)
[2025-05-04 20:20] VITALS: BP 107/70; TEMP 98; O2SAT 97
== END 2025-05-04 20:43 | disposition home or self-care (01) ==
LOC: M ED 14:19
DX: K65.4 Sclerosing mesenteritis (principal); N50.89 Other specified disorders of the male genital organs
CPT/HCPCS: 74177; 76870; 80047; 80048; 80076; 81001; 83605; 83690; 85025; 87661; 87810; 87850; 93976; 96374; 99284; J1885; Q9967